=== PATIENT | male | born 1950 | race Caucasian/White ===

== ENCOUNTER 2017-09-10 14:20 | Observation (INO) | payer MEDICARE ==
[~2017-09-10] VITALS: Ht 180.3 cm; Wt 100.0 kg
[~2017-09-10 14:20] MED LIST: ASPI81TA30 PO; CHOL10002 PO; COLC0.6T69 PO; DICY10CA88 PO; DIPH1TAB PO; HYDR-565 PO; INSU100I29 SQ; INSU100V36 SQ; ISOS30TA6 PO; LEVO50TA8 PO; LORA1TAB PO; MAGN400C PO; MORP15TA60 PO; MV-M1TAB37 PO; NEBI5TAB10 PO; PANT40TA4 PO; RISP3TAB11 PO; SERT100T PO; TEST200V10 IM; TIZA2CAP7 PO; VITA-268 PO; VITC500T PO
[2017-09-10] MEDS ORDERED: morphine 4 MG/ML inj SYRINge IV ONE (14:40)
[2017-09-10] MEDS ORDERED: ondansetron/PF 4mg/2ml inj IV ONE (14:40)
[2017-09-10 15:55] LABS: BASOPHILS % (AUTO) 0.3 % (0-1); EOSINOPHILS # (AUTO) 0.1 X10'3 (0-0.9); HEMATOCRIT 41.1 % (42.0-52.0); HEMOGLOBIN 14.4 g/dl (14.0-17.9); LYMPHOCYTES # (AUTO) 1.9 X10'3 (1.1-4.8); LYMPHOCYTES % (AUTO) 19.1 % (21-51); MEAN CORPUSCULAR HEMOGLOBIN 27.9 PG (27.0-31.0); MEAN CORPUSCULAR HGB CONC 34.9 % (33.0-36.5); MEAN PLATELET VOLUME 7.8 FL (7.4-10.4); MONOCYTES # (AUTO) 0.4 X10'3 (0-0.9); MONOCYTES % (AUTO) 4.1 % (2-12); NEUTROPHILS # (AUTO) 7.7 X10'3 (1.8-7.7); NEUTROPHILS % (AUTO) 75.5 % (42-75); PLATELET COUNT 172 X10'3 (140-440); RED BLOOD COUNT 5.14 X10'6 (4.70-6.10); RED CELL DISTRIBUTION WIDTH 15.1 % (11.5-14.5); WHITE BLOOD COUNT 10.2 X10'3 (4.5-11.0)
[2017-09-10 16:18] LABS: ALANINE AMINOTRANSFERASE 37 U/L (12-78); ALBUMIN 3.9 G/DL (3.4-5.0); ALKALINE PHOSPHATASE 122 IU/L (46-116); ANION GAP 10 (8-16); ASPARTATE AMINO TRANSFERASE 24 U/L (10-37); BILIRUBIN,TOTAL 0.9 MG/DL (0.1-1.0); BLOOD UREA NITROGEN 27 MG/DL (7-18); BUN/CREATININE RATIO 18.8 (5.4-32.0); CALCIUM 9.8 MG/DL (8.5-10.1); CHLORIDE 97 MMOL/L (99-107); CREATININE 1.44 MG/DL (0.60-1.10); GLUCOSE 417 MG/DL (70-104); MAGNESIUM 1.5 MG/DL (1.5-2.4); POTASSIUM 4.7 MMOL/L (3.5-5.1); SODIUM 130 MMOL/L (135-145); TOTAL CARBON DIOXIDE 23.3 MMOL/L (24-32); eGFR 49 ML/MIN
[2017-09-10] MEDS ORDERED: glucagon, human recombinant 1mg kit SUBCUT PRN (17:55)
[2017-09-10] MEDS ORDERED: dextrose ORAL solution 15 GM/59 ML bottle PO PRN ×2 (17:55)
[2017-09-10] MEDS ORDERED: magnesium hydroxide 30ml (MOM) UD suspension PO PRN (17:55)
[2017-09-10] MEDS ORDERED: morphine 4 MG/ML inj SYRINge IV PRN ×2 (17:55)
[2017-09-10] MEDS ORDERED: LORazepam 1 MG tablet PO PRN (17:55)
[2017-09-10] MEDS: K and/or MAG REPLACEMENT MC SCH (17:55)
[2017-09-10] MEDS ORDERED: magnesium 2GM in 50ml NS 50 ML IV PRN (17:55)
[2017-09-10] MEDS ORDERED: ondansetron/PF 4mg/2ml inj IV PRN (17:55)
[2017-09-10] MEDS ORDERED: mag hydrox/Alum hydrox/simeth 30ml oral suspension PO PRN (17:55)
[2017-09-10] MEDS ORDERED: magnesium 4gm in 100ml NS 100 ML IV PRN (17:55)
[2017-09-10] MEDS ORDERED: dextrose 50%-water 50ml dispensing syringe IV PRN ×2 (17:55)
[2017-09-10] MEDS ORDERED: magnesium Cl slow-release 64mg tablet PO PRN (17:55)
[2017-09-10] MEDS ORDERED: potassium Cl 20 mEq SR tablet PO PRN ×2 (17:55)
[2017-09-10] MEDS ORDERED: MESSAGE TO PHARMACY PO ONE (17:55)
[2017-09-10] MEDS ORDERED: acetaminophen 325mg tablet PO PRN ×2 (17:55)
[2017-09-10] MEDS ORDERED: potassium Cl 40MEQ/NS 500ml 500 ML IV PRN ×2 (17:55)
[2017-09-10] MEDS ORDERED: HYDROcodone/acetaminophen 10/325mg tab PO PRN (17:55)
[2017-09-10 18:31] LABS: HEMOGLOBIN A1C 10.7 % (4.5-6.2)
[2017-09-10] MEDS ORDERED: TYPE IN GENERIC & BRAND NAME OF PATIENT MED STRENGTH & FORM PO PRN (19:10)
[2017-09-10] MEDS ORDERED: aspirin 81mg tab.chew PO SCH (21:00)
[2017-09-10] MEDS ORDERED: risperiDONE 2mg tablet PO SCH (21:00)
[2017-09-10] MEDS ORDERED: insulin glargine (Lantus) pen - multi-dose SQ SCH (21:00)
[2017-09-10] MEDS ORDERED: temazepam 15mg capsule PO PRN (21:00)
[2017-09-10] MEDS: morphine ER 15mg tablet PO SCH (22:09)
[2017-09-10] MEDS: isosorbide mononitrate 30mg tab.SR.24H PO SCH (22:09)
[2017-09-10] MEDS: magnesium oxide 400mg tablet PO SCH (22:21)
[2017-09-10] MEDS: normal saline 1000ml 1,000 ML IV SCH (22:21)
[2017-09-10] MEDS ORDERED: insulin Lispro (HumaLOG) vial - multi-dose SQ ONE (23:11)
[2017-09-10] MEDS: insulin Lispro (HumaLOG) vial - multi-dose SQ SCH (23:44)
[2017-09-11 03:27] LABS: HEMATOCRIT 39.9 % (42.0-52.0); HEMOGLOBIN 13.9 g/dl (14.0-17.9); MEAN CORPUSCULAR HEMOGLOBIN 28.1 PG (27.0-31.0); MEAN CORPUSCULAR HGB CONC 34.8 % (33.0-36.5); MEAN CORPUSCULAR VOLUME 80.6 FL (78-98); MEAN PLATELET VOLUME 7.8 FL (7.4-10.4); PLATELET COUNT 168 X10'3 (140-440); RED BLOOD COUNT 4.95 X10'6 (4.70-6.10); RED CELL DISTRIBUTION WIDTH 15.7 % (11.5-14.5)
[2017-09-11 03:38] LABS: ALBUMIN 3.7 G/DL (3.4-5.0); ANION GAP 11 (8-16); BLOOD UREA NITROGEN 28 MG/DL (7-18); CALCIUM 9.5 MG/DL (8.5-10.1); CHLORIDE 101 MMOL/L (99-107); CREATININE 1.27 MG/DL (0.60-1.10); GLUCOSE 360 MG/DL (70-104); MAGNESIUM 1.6 MG/DL (1.5-2.4); POTASSIUM 4.1 MMOL/L (3.5-5.1); SODIUM 135 MMOL/L (135-145); TOTAL CARBON DIOXIDE 23.5 MMOL/L (24-32); eGFR 56 ML/MIN
[2017-09-11 05:54] VITALS: BP 123/75
[2017-09-11] MEDS ORDERED: pantoprazole 40mg Tablet.DR PO SCH (07:30)
[2017-09-11] MEDS: magnesium oxide 400mg tablet PO SCH (07:44)
[2017-09-11] MEDS: morphine ER 15mg tablet PO SCH (07:45)
[2017-09-11] MEDS ORDERED: levoTHYROXINE 25mcg tablet PO SCH (08:00)
[2017-09-11] MEDS ORDERED: sertraline 50mg tablet PO SCH (08:00)
[2017-09-11] MEDS ORDERED: enoxaparin 40mg/0.4ml syringe SUBCUT SCH (08:00)
[2017-09-11] MEDS: K and/or MAG REPLACEMENT MC SCH (08:00)
[2017-09-11] MEDS: isosorbide mononitrate 30mg tab.SR.24H PO SCH (08:03)
[2017-09-11] MEDS: normal saline 1000ml 1,000 ML IV SCH (08:10)
[2017-09-11] MEDS: insulin Lispro (HumaLOG) vial - multi-dose SQ SCH (08:34)
== END 2017-09-11 12:37 | disposition home or self-care (01) ==
LOC: ER 14:20 → ED HOLD 17:55
PROVIDERS: ADMIT Family Medicine; ATTEND Family Medicine
DX: I25.119 Atherosclerotic heart disease of native coronary artery with unspecified angina pectoris (principal); I12.9 Hypertensive chronic kidney disease with stage 1 through stage 4 chronic kidney disease, or unspecified chronic kidney disease; E11.22 Type 2 diabetes mellitus with diabetic chronic kidney disease; E78.5 Hyperlipidemia, unspecified; E03.9 Hypothyroidism, unspecified; E87.1 Hypo-osmolality and hyponatremia; G40.909 Epilepsy, unspecified, not intractable, without status epilepticus; G89.4 Chronic pain syndrome; I25.2 Old myocardial infarction; K29.70 Gastritis, unspecified, without bleeding; M94.0 Chondrocostal junction syndrome [Tietze]; N18.9 Chronic kidney disease, unspecified; Z95.1 Presence of aortocoronary bypass graft; Z95.2 Presence of prosthetic heart valve
CPT/HCPCS: 36415; 71045; 80048; 80053; 82948; 83036; 83735; 83880; 84484; 85025; 85027; 93005; 96361; 96372; 96374; 96375; 96376; 99285; G0378; J1650; J1815; J2270; J2405

== ENCOUNTER 2018-04-18 09:34 | Emergency (ER) | payer MEDICARE ==
[~2018-04-18] VITALS: Ht 180.3 cm; Wt 110.0 kg
[~2018-04-18 09:34] MED LIST changes: +CIPR-230 PO; -HYDR-565 PO; +NITR0.4T48 SL; +TRAM50TA2 PO
[2018-04-18] MEDS ORDERED: normal saline 1000ML IV soln IV ONE (10:10)
[2018-04-18 10:25] LABS: INR 1.1 INR; PARTIAL THROMBOPLASTIN TIME 29 SECONDS (22-32)
[2018-04-18 10:30] LABS: ALANINE AMINOTRANSFERASE 25 U/L (12-78); ALBUMIN 3.4 G/DL (3.4-5.0); ALBUMIN/GLOBULIN RATIO 0.8 (1.1-1.5); ALKALINE PHOSPHATASE 116 IU/L (46-116); ANION GAP 11 (8-16); ASPARTATE AMINO TRANSFERASE 18 U/L (10-37); BILIRUBIN,TOTAL 1.1 MG/DL (0.1-1.0); BLOOD UREA NITROGEN 19 MG/DL (7-18); BUN/CREATININE RATIO 13.4 (5.4-32.0); CALCIUM 9.3 MG/DL (8.5-10.1); CHLORIDE 102 MMOL/L (99-107); CREATININE 1.42 MG/DL (0.60-1.10); GLUCOSE 187 MG/DL (70-104); MAGNESIUM 1.3 MG/DL (1.5-2.4); POTASSIUM 4.5 MMOL/L (3.5-5.1); SODIUM 137 MMOL/L (135-145); TOTAL CARBON DIOXIDE 24.3 MMOL/L (24-32); TOTAL PROTEIN 7.7 G/DL (6.4-8.2); eGFR 50 ML/MIN
[2018-04-18 10:32] LABS: BASOPHILS % (AUTO) 0.3 % (0-1); EOSINOPHILS % (AUTO) 0.4 % (0-6); HEMATOCRIT 32.7 % (42.0-52.0); HEMOGLOBIN 11.5 g/dl (14.0-17.9); LYMPHOCYTES # (AUTO) 0.9 X10'3 (1.1-4.8); LYMPHOCYTES % (AUTO) 8.9 % (21-51); MEAN CORPUSCULAR HEMOGLOBIN 28.5 PG (27.0-31.0); MEAN CORPUSCULAR HGB CONC 35.2 % (33.0-36.5); MEAN PLATELET VOLUME 8.3 FL (7.4-10.4); MONOCYTES # (AUTO) 0.5 X10'3 (0-0.9); MONOCYTES % (AUTO) 5.6 % (2-12); NEUTROPHILS # (AUTO) 8.2 X10'3 (1.8-7.7); NEUTROPHILS % (AUTO) 84.8 % (42-75); PLATELET COUNT 139 X10'3 (140-440); RED BLOOD COUNT 4.04 X10'6 (4.70-6.10); RED CELL DISTRIBUTION WIDTH 14.5 % (11.5-14.5); WHITE BLOOD COUNT 9.6 X10'3 (4.5-11.0)
[2018-04-18] MEDS ORDERED: PREG100C PO (11:23)
[2018-04-18] MEDS ORDERED: LOSA25TA96 PO (11:23)
[2018-04-18] MEDS ORDERED: INDO50CA14 PO (11:23)
[2018-04-18] MEDS ORDERED: ATOR20TA PO (11:23)
[2018-04-18] MEDS ORDERED: DULA1.5P (11:23)
[2018-04-18] MEDS ORDERED: NAPR220T67 PO (11:23)
[2018-04-18 11:30] VITALS: BP 122/68
[2018-04-18] MEDS ORDERED: PRED20TA PO (12:56)
[2018-04-18] MEDS ORDERED: TAM75C PO (12:56)
[2018-04-18] MEDS ORDERED: GUAI120015 PO (12:56)
== END 2018-04-18 13:52 | disposition home or self-care (01) ==
LOC: ER 09:35
DX: B34.9 Viral infection, unspecified (principal); I25.119 Atherosclerotic heart disease of native coronary artery with unspecified angina pectoris; I10 Essential (primary) hypertension; E11.9 Type 2 diabetes mellitus without complications; I25.2 Old myocardial infarction; G89.29 Other chronic pain; F41.9 Anxiety disorder, unspecified; M10.9 Gout, unspecified; Z88.5 Allergy status to narcotic agent; Z88.8 Allergy status to other drugs, medicaments and biological substances; Z79.82 Long term (current) use of aspirin; Z79.84 Long term (current) use of oral hypoglycemic drugs; Z79.899 Other long term (current) drug therapy; Z90.49 Acquired absence of other specified parts of digestive tract; Z95.1 Presence of aortocoronary bypass graft
CPT/HCPCS: 36415; 71045; 80053; 83605; 83735; 84145; 85025; 85610; 85730; 87040; 87186; 87502; 87503; 93005; 96360; 96361; 99285

== ENCOUNTER 2018-08-19 11:46 | Emergency (ER) | payer MEDICARE, OTHER ==
[~2018-08-19] VITALS: Ht 180.3 cm; Wt 95.5 kg
[~2018-08-19 11:46] MED LIST changes: +ATOR20TA PO; -CHOL10002 PO; -CIPR-230 PO; -COLC0.6T69 PO; +DULA1.5P; +GUAI120015 PO; +INDO50CA14 PO; +LOSA25TA96 PO; -MAGN400C PO; -MORP15TA60 PO; -MV-M1TAB37 PO; +NAPR220T67 PO; +PREG100C PO; -VITA-268 PO; -VITC500T PO
[2018-08-19 12:29] LABS: BASOPHILS % (AUTO) 0.3 % (0-1); EOSINOPHILS # (AUTO) 0.2 X10'3 (0-0.9); EOSINOPHILS % (AUTO) 2.5 % (0-6); HEMATOCRIT 32.6 % (42.0-52.0); HEMOGLOBIN 11.2 g/dl (14.0-17.9); LYMPHOCYTES # (AUTO) 1.4 X10'3 (1.1-4.8); LYMPHOCYTES % (AUTO) 19.9 % (21-51); MEAN CORPUSCULAR HEMOGLOBIN 28.1 PG (27.0-31.0); MEAN CORPUSCULAR HGB CONC 34.3 g/dL (33.0-36.5); MEAN CORPUSCULAR VOLUME 81.8 FL (78-98); MEAN PLATELET VOLUME 7.6 FL (7.4-10.4); MONOCYTES # (AUTO) 0.4 X10'3 (0-0.9); MONOCYTES % (AUTO) 6.4 % (2-12); NEUTROPHILS % (AUTO) 70.9 % (42-75); PLATELET COUNT 170 X10'3 (140-440); RED BLOOD COUNT 3.98 X10'6 (4.70-6.10); RED CELL DISTRIBUTION WIDTH 15.2 % (11.5-14.5)
[2018-08-19 12:49] LABS: PARTIAL THROMBOPLASTIN TIME 27 SECONDS (22-32); PROTHROMBIN TIME 10.4 SECONDS (9.0-12.0)
[2018-08-19 12:52] LABS: ALANINE AMINOTRANSFERASE 24 U/L (12-78); ALBUMIN 3.5 G/DL (3.4-5.0); ALBUMIN/GLOBULIN RATIO 0.9 (1.1-1.5); ALKALINE PHOSPHATASE 115 IU/L (46-116); ANION GAP 11 (8-16); ASPARTATE AMINO TRANSFERASE 12 U/L (10-37); BILIRUBIN,TOTAL 0.6 MG/DL (0.1-1.0); BLOOD UREA NITROGEN 21 MG/DL (7-18); CALCIUM 9.1 MG/DL (8.5-10.1); CHLORIDE 102 MMOL/L (99-107); GLUCOSE 360 MG/DL (70-104); POTASSIUM 4.7 MMOL/L (3.5-5.1); SODIUM 135 MMOL/L (135-145); TOTAL CARBON DIOXIDE 22.5 MMOL/L (24-32); TOTAL PROTEIN 7.3 G/DL (6.4-8.2); eGFR 50 ML/MIN
--- NOTE | 2018-08-19 14:50 | NUR ---
CHEST PAIN SINCE 1030 THIS AM. TOOK 3 NITROS AND GOT RELIEF. PAIN IS RETURNING NOW AND RATED 8/10 STABBING AND INTERMITTENT. PAIN IN LEFT SIDE OF NECK AND DOWN LEFT ARM.
[2018-08-19] MEDS ORDERED: mag hydrox/Alum hydrox/simeth 30ml oral suspension PO ONE (15:05)
[2018-08-19] MEDS ORDERED: nitroGLYCERIN 0.4mg SUBLingual tab SL PRN (15:05)
[2018-08-19] MEDS ORDERED: LIDOcaine Viscous 15ml cup PO ONE (15:05)
[2018-08-19] MEDS ORDERED: aspirin 81mg tab.chew PO ONE (15:05)
[2018-08-19] MEDS ORDERED: nitroGLYCERIN 0.4mg/hour patch TD ONE (15:05)
[2018-08-19] MEDS ORDERED: pantoprazole 40mg Tablet.DR PO STA (16:05)
[2018-08-19] MEDS ORDERED: OMEP40CA37 PO (16:07)
[2018-08-19 16:23] VITALS: BP 159/90
== END 2018-08-19 17:16 | disposition home or self-care (01) ==
LOC: ER 11:48
DX: R07.89 Other chest pain (principal); R06.02 Shortness of breath; R05 Cough; R11.0 Nausea; R61 Generalized hyperhidrosis; I25.10 Atherosclerotic heart disease of native coronary artery without angina pectoris; I10 Essential (primary) hypertension; I25.2 Old myocardial infarction; E11.9 Type 2 diabetes mellitus without complications; G89.29 Other chronic pain; Z90.49 Acquired absence of other specified parts of digestive tract; Z95.0 Presence of cardiac pacemaker; Z98.890 Other specified postprocedural states; Z88.8 Allergy status to other drugs, medicaments and biological substances; Z79.82 Long term (current) use of aspirin; Z79.4 Long term (current) use of insulin; Z79.899 Other long term (current) drug therapy
CPT/HCPCS: 36415; 71046; 80053; 84484; 85025; 85610; 85730; 93005; 99284

== ENCOUNTER 2019-05-18 11:53 | Emergency (ER) | payer MEDICARE, OTHER ==
[~2019-05-18] VITALS: Ht 180.3 cm; Wt 84.4 kg
[~2019-05-18 11:53] MED LIST changes: -ATOR20TA PO; +BUSP5TAB3 PO; -DIPH1TAB PO; -DULA1.5P; -GUAI120015 PO; +ICOS1CAP PO; -INDO50CA14 PO; -INSU100I29 SQ; +INSU300I; +LACT1CAP26 PO; -LORA1TAB PO; -LOSA25TA96 PO; -NAPR220T67 PO; +NOR5T PO; -PANT40TA4 PO; -TEST200V10 IM; -TIZA2CAP7 PO
[2019-05-18 12:26] LABS: BASOPHILS # (AUTO) 0.1 X10'3 (0-0.2); BASOPHILS % (AUTO) 0.7 % (0-1); EOSINOPHILS % (AUTO) 0.4 % (0-6); HEMATOCRIT 39.1 % (42.0-52.0); HEMOGLOBIN 13.7 g/dl (14.0-17.9); LYMPHOCYTES # (AUTO) 2.1 X10'3 (1.1-4.8); MEAN CORPUSCULAR HEMOGLOBIN 29.5 PG (27.0-31.0); MEAN CORPUSCULAR HGB CONC 35.1 g/dL (33.0-36.5); MEAN CORPUSCULAR VOLUME 84.1 FL (78-98); MEAN PLATELET VOLUME 7.6 FL (7.4-10.4); MONOCYTES # (AUTO) 0.7 X10'3 (0-0.9); MONOCYTES % (AUTO) 6.8 % (2-12); NEUTROPHILS # (AUTO) 6.7 X10'3 (1.8-7.7); NEUTROPHILS % (AUTO) 70.1 % (42-75); PLATELET COUNT 241 X10'3 (140-440); RED BLOOD COUNT 4.65 X10'6 (4.70-6.10); RED CELL DISTRIBUTION WIDTH 15.7 % (11.5-14.5); WHITE BLOOD COUNT 9.6 X10'3 (4.5-11.0)
[2019-05-18 12:43] LABS: ALANINE AMINOTRANSFERASE 20 U/L (12-78); ALBUMIN 4.7 G/DL (3.4-5.0); ALBUMIN/GLOBULIN RATIO 1.1 (1.1-1.5); ALKALINE PHOSPHATASE 75 IU/L (46-116); ANION GAP 15 (8-16); ASPARTATE AMINO TRANSFERASE 23 U/L (10-37); BILIRUBIN,TOTAL 1.8 MG/DL (0.1-1.0); BLOOD UREA NITROGEN 37 MG/DL (7-18); BUN/CREATININE RATIO 21.1 (5.4-32.0); CALCIUM 9.9 MG/DL (8.5-10.1); CHLORIDE 103 MMOL/L (99-107); CREATININE 1.75 MG/DL (0.60-1.10); GLUCOSE 172 MG/DL (70-104); POTASSIUM 4.3 MMOL/L (3.5-5.1); SODIUM 134 MMOL/L (135-145); TOTAL CARBON DIOXIDE 15.6 MMOL/L (24-32); TOTAL PROTEIN 9.1 G/DL (6.4-8.2); eGFR 39 ML/MIN
[2019-05-18] MEDS ORDERED: LORazepam 0.5 MG tablet PO PRN (12:50)
[2019-05-18] MEDS ORDERED: mag hydrox/Alum hydrox/simeth 30ml oral suspension PO ONE (14:50)
[2019-05-18] MEDS ORDERED: LORA-268 PO (15:58)
[2019-05-18 16:06] VITALS: BP 158/81
== END 2019-05-18 16:09 | disposition home or self-care (01) ==
LOC: ER 11:53
DX: R07.89 Other chest pain (principal); R06.02 Shortness of breath; F41.9 Anxiety disorder, unspecified; I25.10 Atherosclerotic heart disease of native coronary artery without angina pectoris; I10 Essential (primary) hypertension; I25.2 Old myocardial infarction; E11.9 Type 2 diabetes mellitus without complications; G89.29 Other chronic pain; Z90.49 Acquired absence of other specified parts of digestive tract; Z95.1 Presence of aortocoronary bypass graft; Z56.0 Unemployment, unspecified; Z88.8 Allergy status to other drugs, medicaments and biological substances; Z79.82 Long term (current) use of aspirin; Z79.4 Long term (current) use of insulin; Z79.899 Other long term (current) drug therapy
CPT/HCPCS: 36415; 71045; 80053; 84484; 85025; 93005; 99284

== ENCOUNTER 2019-07-11 09:41 | Inpatient (IN) | payer MEDICARE, OTHER ==
[~2019-07-11] VITALS: Ht 180.3 cm; Wt 61.6 kg
[~2019-07-11 09:41] MED LIST changes: +LORA-268 PO
[2019-07-11 10:28] LABS: BASOPHILS # (AUTO) 0.1 X10'3 (0-0.2); BASOPHILS % (AUTO) 0.8 % (0-1); EOSINOPHILS # (AUTO) 0.2 X10'3 (0-0.9); EOSINOPHILS % (AUTO) 1.4 % (0-6); HEMATOCRIT 36.6 % (42.0-52.0); HEMOGLOBIN 12.5 g/dl (14.0-17.9); LYMPHOCYTES % (AUTO) 24.7 % (21-51); MEAN CORPUSCULAR HEMOGLOBIN 28.2 PG (27.0-31.0); MEAN CORPUSCULAR HGB CONC 34.2 g/dL (33.0-36.5); MEAN CORPUSCULAR VOLUME 82.4 FL (78-98); MEAN PLATELET VOLUME 8.1 FL (7.4-10.4); MONOCYTES # (AUTO) 0.9 X10'3 (0-0.9); MONOCYTES % (AUTO) 7.3 % (2-12); NEUTROPHILS # (AUTO) 7.9 X10'3 (1.8-7.7); NEUTROPHILS % (AUTO) 65.8 % (42-75); PLATELET COUNT 253 X10'3 (140-440); RED BLOOD COUNT 4.44 X10'6 (4.70-6.10); RED CELL DISTRIBUTION WIDTH 14.4 % (11.5-14.5)
[2019-07-11 10:50] LABS: ALANINE AMINOTRANSFERASE 27 U/L (12-78); ALBUMIN 3.7 G/DL (3.4-5.0); ALBUMIN/GLOBULIN RATIO 0.9 (1.1-1.5); ALKALINE PHOSPHATASE 117 IU/L (46-116); ANION GAP 13 (8-16); ASPARTATE AMINO TRANSFERASE 19 U/L (10-37); BILIRUBIN,TOTAL 1.3 MG/DL (0.1-1.0); BLOOD UREA NITROGEN 29 MG/DL (7-18); CALCIUM 9.8 MG/DL (8.5-10.1); CHLORIDE 106 MMOL/L (99-107); GLUCOSE 112 MG/DL (70-104); POTASSIUM 4.3 MMOL/L (3.5-5.1); SODIUM 142 MMOL/L (135-145); TOTAL CARBON DIOXIDE 23.4 MMOL/L (24-32)
[2019-07-11 11:00] LABS: BUN/CREATININE RATIO 19.6 (5.4-32.0); CREATININE 1.48 MG/DL (0.60-1.10); MAGNESIUM 1.4 MG/DL (1.5-2.4); eGFR 47 ML/MIN
[2019-07-11] MEDS ORDERED: furosemide 10 MG/1 ML 10ml inj IV ONE (11:10)
[2019-07-11] MEDS ORDERED: nitroGLYCERIN 1gm ointment UD TP ONE (11:15)
[2019-07-11] MEDS ORDERED: potassium CL 10mEq/100ml bag 100 ML IV PRN ×2 (12:15)
[2019-07-11] MEDS ORDERED: acetaminophen 325mg tablet PO PRN ×2 (12:15)
[2019-07-11] MEDS ORDERED: magnesium Cl slow-release 64mg tablet PO PRN (12:15)
[2019-07-11] MEDS ORDERED: magnesium 4gm in 100ml NS 100 ML IV PRN (12:15)
[2019-07-11] MEDS ORDERED: potassium Cl 20 mEq SR tablet PO PRN ×2 (12:15)
[2019-07-11] MEDS ORDERED: HYDROcodone/acetaminophen 5mg/325mg tablet PO PRN (12:15)
[2019-07-11] MEDS ORDERED: ondansetron/PF 4mg/2ml inj IV PRN (12:15)
[2019-07-11] MEDS ORDERED: morphine 2 MG/ML inj. syringe IV PRN ×2 (12:15)
[2019-07-11] MEDS ORDERED: magnesium 2GM in 50ml NS 50 ML IV PRN (12:15)
[2019-07-11] MEDS ORDERED: magnesium hydroxide 30ml (MOM) UD suspension PO PRN (12:15)
[2019-07-11] MEDS ORDERED: mag hydrox/Alum hydrox/simeth 30ml oral suspension PO PRN (12:15)
[2019-07-11] MEDS ORDERED: LYR75C PO (12:49)
[2019-07-11] MEDS ORDERED: ISOS30TA6 PO (12:56)
[2019-07-11] MEDS ORDERED: LOSA100T57 PO (12:56)
[2019-07-11] MEDS ORDERED: PANT40TA4 PO (12:57)
[2019-07-11] MEDS ORDERED: AMLO10TA PO (12:57)
[2019-07-11] MEDS ORDERED: INSU100C10 SQ (12:58)
--- NOTE | 2019-07-11 15:20 | NUR ---
Received report from ED. Pt in route. 1535 Pt arrived to unit, ambulated to bed independently. No signs of distress. Call light provided to patient. VS assessed, stable. Pt denies CP at this time. transformation lead applied. Report given to primary RN Radha @ [id number].
--- NOTE | 2019-07-11 15:38 | NUR ---
Patient admitted to room 3027Q. Resource nurse applied tele, took vital signs and are stable. Patient oriented to room, will continue to monitor closely
[2019-07-11 15:40] VITALS: BP 154/91
--- NOTE | 2019-07-11 16:08 | NUR ---
Patient had complaints of chest pain, more so on left side, and stated that it radiated slightly into upper arm. Paged PAGER ID: [phone] MESSAGE: Radha gay [phone]. RE Miguel Gonzalez [id number]. STAT EKG being done for chest pain. Can I bring EKG to you to read? Thank you
--- NOTE | 2019-07-11 16:15 | NUR ---
Dr Richardson notified of EKG done for chest pain complaint. Gave patient SL Nitro and brought EKG, EKG read by Dr Tinajero as Non Stemi. Vital signs stable. Will monitor closely
[2019-07-11] MEDS: nitroGLYCERIN 0.4mg SUBLingual tab SL PRN (16:20)
--- NOTE | 2019-07-11 17:18 | NUR ---
Paged to continue trop series and pt ativan request PAGER ID: [phone] MESSAGE: Radha GRAVES. RE Miguel Pierce [id number]. There is only one troponin ordered and completed. Would you like order for continued trop series? Also patient is requesting order for Ativan if possible. Thank you
[2019-07-11] MEDS ORDERED: LORazepam 1 MG tablet PO PRN (17:20)
[2019-07-11] MEDS ORDERED: dextrose 50%-water 50ml dispensing syringe IV PRN ×2 (17:20)
[2019-07-11] MEDS ORDERED: insulin Lispro (HumaLOG) vial - multi-dose SQ SCH (17:20)
[2019-07-11] MEDS ORDERED: MESSAGE TO PHARMACY PO ONE (17:20)
[2019-07-11] MEDS ORDERED: glucagon, human recombinant 1mg kit SUBCUT PRN (17:20)
[2019-07-11] MEDS ORDERED: dextrose ORAL solution 15 GM/59 ML bottle PO PRN ×2 (17:20)
--- NOTE | 2019-07-11 18:22 | NUR ---
Problems reprioritized. Patient report given, questions answered & plan of care reviewed with Anel PIERRE.
[2019-07-11 19:00] VITALS: BP 115/78
[2019-07-11] MEDS: K and/or MAG REPLACEMENT MC SCH (20:00)
[2019-07-11] MEDS: insulin glargine (Lantus) pen - multi-dose SQ SCH (21:00)
[2019-07-11] MEDS ORDERED: dicyclomine 10 MG capsule PO PRN (21:15)
[2019-07-11] MEDS ORDERED: traMADol 50MG tablet PO PRN (21:15)
[2019-07-11] MEDS ORDERED: aminophylline 250mg/10ml inj. IV PRN (21:20)
[2019-07-11] MEDS ORDERED: enoxaparin 100mg/ml syringe SUBCUT SCH (21:20)
[2019-07-11] MEDS ORDERED: metoprolol tartrate 1mg/ml inj IV PRN (21:20)
[2019-07-11] MEDS ORDERED: regadenoson 0.4mg/5ml syringe IV PRN (21:20)
[2019-07-11] MEDS ORDERED: nitroGLYCERIN 0.4mg SUBLingual tab SL PRN (21:20)
[2019-07-11 23:00] VITALS: BP 98/72
[2019-07-12] VITALS (12 sets, daily range): BP systolic 80–126; BP diastolic 47–81
[2019-07-12 05:28] LABS: BASOPHILS # (AUTO) 0.1 X10'3 (0-0.2); BASOPHILS % (AUTO) 0.7 % (0-1); EOSINOPHILS # (AUTO) 0.1 X10'3 (0-0.9); EOSINOPHILS % (AUTO) 1.5 % (0-6); HEMATOCRIT 34.6 % (42.0-52.0); HEMOGLOBIN 12.2 g/dl (14.0-17.9); LYMPHOCYTES # (AUTO) 2.2 X10'3 (1.1-4.8); LYMPHOCYTES % (AUTO) 23.4 % (21-51); MEAN CORPUSCULAR HEMOGLOBIN 29.1 PG (27.0-31.0); MEAN CORPUSCULAR HGB CONC 35.2 g/dL (33.0-36.5); MEAN CORPUSCULAR VOLUME 82.7 FL (78-98); MEAN PLATELET VOLUME 8.7 FL (7.4-10.4); MONOCYTES # (AUTO) 0.6 X10'3 (0-0.9); MONOCYTES % (AUTO) 6.8 % (2-12); NEUTROPHILS # (AUTO) 6.3 X10'3 (1.8-7.7); NEUTROPHILS % (AUTO) 67.6 % (42-75); PLATELET COUNT 196 X10'3 (140-440); RED BLOOD COUNT 4.19 X10'6 (4.70-6.10); RED CELL DISTRIBUTION WIDTH 14.3 % (11.5-14.5); WHITE BLOOD COUNT 9.3 X10'3 (4.5-11.0)
[2019-07-12 05:45] LABS: ALBUMIN 3.5 G/DL (3.4-5.0); ANION GAP 8 (8-16); BLOOD UREA NITROGEN 33 MG/DL (7-18); BUN/CREATININE RATIO 22.1 (5.4-32.0); CALCIUM 9.7 MG/DL (8.5-10.1); CHLORIDE 105 MMOL/L (99-107); CREATININE 1.49 MG/DL (0.60-1.10); GLUCOSE 116 MG/DL (70-104); MAGNESIUM 1.5 MG/DL (1.5-2.4); POTASSIUM 3.5 MMOL/L (3.5-5.1); SODIUM 141 MMOL/L (135-145); TOTAL CARBON DIOXIDE 27.9 MMOL/L (24-32); TROPONIN I < 0.04 NG/ML (0.0-0.05); eGFR 47 ML/MIN
--- NOTE | 2019-07-12 06:55 | NUR ---
Patient in room PCU 3028. I have received report from IGNACIO PALMER and had the opportunity to ask questions and assume patient care.
[2019-07-12] MEDS: levoTHYROXINE 25mcg tablet PO SCH (07:54)
[2019-07-12] MEDS: pantoprazole 40mg Tablet.DR PO SCH (07:54)
[2019-07-12] MEDS: lactobacillus rhamnosus 10,000 MMU CELLS/CAPSULE PO SCH ×2 (07:54→20:46)
[2019-07-12] MEDS: isosorbide mononitrate 30mg tab.SR.24H PO SCH (07:55)
[2019-07-12] MEDS: pregabalin 75mg capsule PO SCH ×2 (07:55→20:46)
[2019-07-12] MEDS: losartan 50mg tablet PO SCH (07:55)
[2019-07-12] MEDS: busPIRone 5mg tablet PO SCH (07:55)
[2019-07-12] MEDS: sertraline 50mg tablet PO SCH (07:55)
[2019-07-12] MEDS: amLODIPine 5mg tablet PO SCH (07:56)
[2019-07-12] MEDS: LORazepam 0.5 MG tablet PO SCH ×2 (07:56→20:46)
[2019-07-12] MEDS: K and/or MAG REPLACEMENT MC SCH ×2 (08:00→20:00)
[2019-07-12] MEDS ORDERED: enoxaparin 60mg/0.6ml syringe SUBCUT SCH (08:00)
[2019-07-12] MEDS ORDERED: furosemide 20 MG/2 ML vial IV SCH (08:00)
[2019-07-12] MEDS ORDERED: enoxaparin 40mg/0.4ml syringe SQ SCH (08:00)
--- NOTE | 2019-07-12 08:16 | NUR ---
PER DR. NYDIA KRISHNA AM [facility]
--- NOTE | 2019-07-12 09:34 | NUR ---
PAGER ID: [phone] MESSAGE: [id number] TAMMY IS HAVING 7/10 LEFT SIDED CHEST PAIN. WE ARE GETTING EKG. JAKE GRAVES
--- NOTE | 2019-07-12 09:39 | NUR ---
PAGED DR. STAFFORD PAGER ID: [phone] MESSAGE: TIA [facility] [id number] CAN YOU CALL ME SHIMA PLEASE MICHELLE MUNOZ CHEST
[2019-07-12] MEDS: nitroGLYCERIN 0.4mg SUBLingual tab SL PRN (09:48)
--- NOTE | 2019-07-12 09:51 | NUR ---
dr. aquino in to see pt per md give ntg. ntg given bp 93/56 99%ra hr 95
[2019-07-12] MEDS ORDERED: aspirin 325mg tablet PO ONE (10:00)
--- NOTE | 2019-07-12 10:03 | NUR ---
pt states chest pain is getting better 3/10 at this point. current bp 93/57
[2019-07-12] MEDS ORDERED: heparin 10,000 units/1 ML INJ IV ONE (10:10)
--- NOTE | 2019-07-12 10:40 | NUR ---
PT STATES HE IS FEELING MUCH BETTER, CHEST PAIN HAS RESOLVED
[2019-07-12] MEDS: heparin 25,000 UNIT/250ml bag 250 ML IV SCH ×2 (10:51→18:01)
[2019-07-12 10:59] LABS: BASOPHILS # (AUTO) 0.1 X10'3 (0-0.2); BASOPHILS % (AUTO) 0.6 % (0-1); EOSINOPHILS # (AUTO) 0.2 X10'3 (0-0.9); EOSINOPHILS % (AUTO) 1.6 % (0-6); HEMATOCRIT 36.1 % (42.0-52.0); HEMOGLOBIN 12.6 g/dl (14.0-17.9); LYMPHOCYTES # (AUTO) 2.5 X10'3 (1.1-4.8); LYMPHOCYTES % (AUTO) 24.6 % (21-51); MEAN CORPUSCULAR HEMOGLOBIN 28.8 PG (27.0-31.0); MEAN CORPUSCULAR VOLUME 82.1 FL (78-98); MEAN PLATELET VOLUME 8.4 FL (7.4-10.4); MONOCYTES # (AUTO) 0.7 X10'3 (0-0.9); MONOCYTES % (AUTO) 6.4 % (2-12); NEUTROPHILS # (AUTO) 6.9 X10'3 (1.8-7.7); NEUTROPHILS % (AUTO) 66.8 % (42-75); PLATELET COUNT 237 X10'3 (140-440); RED BLOOD COUNT 4.39 X10'6 (4.70-6.10); RED CELL DISTRIBUTION WIDTH 14.4 % (11.5-14.5); WHITE BLOOD COUNT 10.3 X10'3 (4.5-11.0)
[2019-07-12 11:07] LABS: PARTIAL THROMBOPLASTIN TIME 30 SECONDS (22-32)
--- NOTE | 2019-07-12 15:43 | NUR ---
PAGED DR STAFFORD promotional table spacer PAGER ID: [phone] MESSAGE: LARY U [id number] SINTIAU CALL PLEASE MICHELLE MUNOZ BP /47 80/46 PT ASYMPTOMATIC, STATES HE IS FEELING FINE Addendum: 07/12/19 at 1607 by Lary Osman RN PER DR STAFFORD GIVE 250ML BOLUS NS
[2019-07-12] MEDS ORDERED: normal saline 1000ml 1,000 ML IV ONE (16:00)
[2019-07-12] MEDS: heparin 10,000 units/1 ML INJ IV PRN (17:57)
--- NOTE | 2019-07-12 18:38 | NUR ---
Problems reprioritized. Patient report given, questions answered & plan of care reviewed with IGNACIO Araujo.
[2019-07-12] MEDS: aspirin 81mg tablet.DR PO SCH (20:46)
[2019-07-12] MEDS: risperiDONE 0.5mg tablet PO SCH (20:46)
[2019-07-12] MEDS: insulin glargine (Lantus) pen - multi-dose SQ SCH (20:51)
[2019-07-13 01:23] LABS: ALBUMIN 3.2 G/DL (3.4-5.0); ANION GAP 6 (8-16); BLOOD UREA NITROGEN 48 MG/DL (7-18); BUN/CREATININE RATIO 21.4 (5.4-32.0); CALCIUM 9.2 MG/DL (8.5-10.1); CHLORIDE 104 MMOL/L (99-107); CREATININE 2.24 MG/DL (0.60-1.10); GLUCOSE 179 MG/DL (70-104); MAGNESIUM 1.5 MG/DL (1.5-2.4); POTASSIUM 3.8 MMOL/L (3.5-5.1); SODIUM 137 MMOL/L (135-145); TOTAL CARBON DIOXIDE 26.7 MMOL/L (24-32); eGFR 29 ML/MIN
[2019-07-13 01:40] LABS: BASOPHILS # (AUTO) 0.1 X10'3 (0-0.2); BASOPHILS % (AUTO) 0.8 % (0-1); EOSINOPHILS # (AUTO) 0.1 X10'3 (0-0.9); EOSINOPHILS % (AUTO) 1.2 % (0-6); HEMATOCRIT 31.4 % (42.0-52.0); LYMPHOCYTES # (AUTO) 1.9 X10'3 (1.1-4.8); LYMPHOCYTES % (AUTO) 23.1 % (21-51); MEAN CORPUSCULAR HEMOGLOBIN 28.8 PG (27.0-31.0); MEAN CORPUSCULAR VOLUME 82.5 FL (78-98); MONOCYTES # (AUTO) 0.5 X10'3 (0-0.9); MONOCYTES % (AUTO) 5.8 % (2-12); NEUTROPHILS # (AUTO) 5.6 X10'3 (1.8-7.7); NEUTROPHILS % (AUTO) 69.1 % (42-75); PLATELET COUNT 174 X10'3 (140-440); RED CELL DISTRIBUTION WIDTH 14.2 % (11.5-14.5); WHITE BLOOD COUNT 8.1 X10'3 (4.5-11.0)
[2019-07-13] MEDS: heparin 10,000 units/1 ML INJ IV PRN ×2 (02:12→22:34)
[2019-07-13] MEDS: heparin 25,000 UNIT/250ml bag 250 ML IV SCH ×3 (02:16→22:35)
[2019-07-13 03:00] VITALS: BP 75/47
[2019-07-13 06:00] VITALS: BP 76/44
--- NOTE | 2019-07-13 06:22 | NUR ---
Problems reprioritized. Patient report given, questions answered & plan of care reviewed with Marilyn PIERRE.
--- NOTE | 2019-07-13 06:27 | NUR ---
Patient in room PCU 3028. I have received report from Lucina PIERRE and had the opportunity to ask questions and assume patient care.
[2019-07-13] MEDS: pantoprazole 40mg Tablet.DR PO SCH (07:23)
[2019-07-13] MEDS: pregabalin 75mg capsule PO SCH ×2 (07:24→20:50)
[2019-07-13] MEDS: lactobacillus rhamnosus 10,000 MMU CELLS/CAPSULE PO SCH ×2 (07:24→20:50)
[2019-07-13] MEDS: busPIRone 5mg tablet PO SCH (07:24)
[2019-07-13] MEDS: sertraline 50mg tablet PO SCH (07:24)
[2019-07-13] MEDS: LORazepam 0.5 MG tablet PO SCH ×2 (07:24→20:50)
[2019-07-13] MEDS: levoTHYROXINE 25mcg tablet PO SCH (07:24)
[2019-07-13] MEDS: K and/or MAG REPLACEMENT MC SCH ×2 (07:27→19:22)
[2019-07-13] MEDS: isosorbide mononitrate 30mg tab.SR.24H PO SCH (07:28)
[2019-07-13] MEDS: losartan 50mg tablet PO SCH (07:28)
[2019-07-13] MEDS: amLODIPine 5mg tablet PO SCH (07:28)
--- NOTE | 2019-07-13 07:47 | NUR ---
Kishan [facility]AIRE[facility] re: stress test and hypotension PAGER ID: [phone] MESSAGE: [id number] Shweta Pierce. Stress test ordered for today. BP this AM . Held all AM BP meds. Nuc. med aware. Pls. advise. Lori [phone]
[2019-07-13 11:00] VITALS: BP 96/60
--- NOTE | 2019-07-13 12:58 | NUR ---
Page Dr. Mcguire PAGER ID: [phone] MESSAGE: Room 3024C CarlosClyde: Patient's most recent BP 90/56. Thank you, Dora ext [phone].
[2019-07-13 15:00] VITALS: BP 84/49
--- NOTE | 2019-07-13 15:17 | NUR ---
Called lab to fillowo up on timed cardiac ptt for 1455. Per Lucina Randall from lab, ice cream maker just got to floor and she will make sure that patient is seen.
--- NOTE | 2019-07-13 18:10 | NUR ---
Problems reprioritized. Patient report given, questions answered & plan of care reviewed with Lucina PIERRE.
[2019-07-13 19:00] VITALS: BP 93/45
[2019-07-13] MEDS: risperiDONE 0.5mg tablet PO SCH (20:50)
[2019-07-13] MEDS: aspirin 81mg tablet.DR PO SCH (20:50)
[2019-07-13] MEDS: insulin glargine (Lantus) pen - multi-dose SQ SCH (21:00)
[2019-07-13 23:00] VITALS: BP 100/58
[2019-07-14] VITALS (15 sets, daily range): BP systolic 93–134; BP diastolic 45–80
[2019-07-14 05:16] LABS: BASOPHILS % (AUTO) 0.4 % (0-1); EOSINOPHILS # (AUTO) 0.1 X10'3 (0-0.9); EOSINOPHILS % (AUTO) 2.1 % (0-6); HEMATOCRIT 29.9 % (42.0-52.0); HEMOGLOBIN 10.6 g/dl (14.0-17.9); LYMPHOCYTES # (AUTO) 1.7 X10'3 (1.1-4.8); LYMPHOCYTES % (AUTO) 24.9 % (21-51); MEAN CORPUSCULAR HEMOGLOBIN 29.2 PG (27.0-31.0); MEAN CORPUSCULAR HGB CONC 35.6 g/dL (33.0-36.5); MEAN PLATELET VOLUME 8.7 FL (7.4-10.4); MONOCYTES # (AUTO) 0.5 X10'3 (0-0.9); MONOCYTES % (AUTO) 7.6 % (2-12); NEUTROPHILS # (AUTO) 4.4 X10'3 (1.8-7.7); PLATELET COUNT 151 X10'3 (140-440); RED BLOOD COUNT 3.65 X10'6 (4.70-6.10); RED CELL DISTRIBUTION WIDTH 14.3 % (11.5-14.5); WHITE BLOOD COUNT 6.8 X10'3 (4.5-11.0)
[2019-07-14 05:17] LABS: ANION GAP 9 (8-16); BLOOD UREA NITROGEN 58 MG/DL (7-18); BUN/CREATININE RATIO 26.7 (5.4-32.0); CALCIUM 9.1 MG/DL (8.5-10.1); CHLORIDE 104 MMOL/L (99-107); CREATININE 2.17 MG/DL (0.60-1.10); GLUCOSE 140 MG/DL (70-104); MAGNESIUM 1.7 MG/DL (1.5-2.4); POTASSIUM 3.6 MMOL/L (3.5-5.1); SODIUM 138 MMOL/L (135-145); eGFR 30 ML/MIN
[2019-07-14] MEDS: heparin 25,000 UNIT/250ml bag 250 ML IV SCH (05:31)
--- NOTE | 2019-07-14 06:10 | NUR ---
Problems reprioritized. Patient report given, questions answered & plan of care reviewed with Marilyn PIERRE.
--- NOTE | 2019-07-14 06:26 | NUR ---
Patient in room PCU 3028. I have received report from Lucina PIERRE and had the opportunity to ask questions and assume patient care.
[2019-07-14] MEDS: pregabalin 75mg capsule PO SCH (07:23)
[2019-07-14] MEDS: levoTHYROXINE 25mcg tablet PO SCH (07:23)
[2019-07-14] MEDS: sertraline 50mg tablet PO SCH (07:23)
[2019-07-14] MEDS: LORazepam 0.5 MG tablet PO SCH (07:23)
[2019-07-14] MEDS: lactobacillus rhamnosus 10,000 MMU CELLS/CAPSULE PO SCH (07:23)
[2019-07-14] MEDS: busPIRone 5mg tablet PO SCH (07:23)
[2019-07-14] MEDS: pantoprazole 40mg Tablet.DR PO SCH (07:24)
[2019-07-14] MEDS ORDERED: losartan 25mg tablet PO SCH (08:00)
[2019-07-14] MEDS ORDERED: LORazepam 2 mg/ml vial IV ONE (09:00)
[2019-07-14] MEDS ORDERED: aminophylline inj. 10 ML IV ONE (09:33)
[2019-07-14] MEDS ORDERED: aminophylline 250mg/10ml inj. IV ONE (09:50)
--- NOTE | 2019-07-14 12:05 | NUR ---
Called lab and spoke to Al to inform them that pt. is back from nuc. med. so that 1130 cardiac ptt can be drawn per protocol.
--- NOTE | 2019-07-14 12:50 | NUR ---
Kishan Mcguire MD stress test results PAGER ID: [phone] MESSAGE: [id number] Miguel Pierce Stress test results are in. No evidence of ischemia. Mild inferior wall fixed changes. There is some septal dyskinesia with paradoxical motion seen. The calculated ejection fraction was 46%. Lori [id number]
--- NOTE | 2019-07-14 14:30 | NUR ---
Called [facility] to schedule f/u appt prior to discharge. Per law secretary, they are waiting on medical records. Consulted with charge account identification clerk Kathi who stated that she will call them to follow up.
--- NOTE | 2019-07-14 14:43 | NUR ---
I SPOKE TO DR HERNANDEZ OFFICE TO MAKE FOLLOW UP APT FOR PT. THEY INSTRUCTED ME TO HAVE PT CALL OFFICE ON WEDNESDAY. IF HE DOES NOT THEY WILL ALSO ATTEMPT TO CONTACT HIM. THEY ARE UNABLE TO SCHEDULE F/U APPOINTMENTS WITHOUT HOSPITAL RECORDS IN THEIR HANDS. DR HERNANDEZ OFFICE IS CONTACTING [facility] RECORDS.
--- NOTE | 2019-07-14 15:00 | NUR ---
Per Md orders, patient is stable for discharge home. No new prescriptions to call in. Reviewed discharge packet with patient and daughter at bedside. Patient will call Dr Berrios's clinic on Wednesday for appt per clinic medical records secretary instructions and clinic will also contact patient. All questions answered to satisfaction. Discontinued telemonitoring; discontinued PIV cannula intact. All belongings sent with patient. Transferred to private vehicle via wheelchair accompanied by daughter.
--- NOTE | 2019-07-19 10:22 | NUR ---
Case management DC follow up: Spoke to pt via telephone conv. pt denies pain, cp SOB, N/V, dizziness at this time. Pt understands why he is taking medications, but would like to have a home health professional come in for assist w/medications and incidentals. Pt has follow up appt w/ tomorrow 07/20/2019, and will ask PCP for assist and referrals. pt did not have any further questions or concerns at this time.
== END 2019-07-14 15:41 | disposition home or self-care (01) | DRG 302 ==
LOC: ER 09:42 → ED HOLD 12:12 → PCU 3S 15:38
PROVIDERS: ADMIT Hospitalist; ATTEND Internal Medicine
PROC: 4A02XM4 Measurement of Cardiac Total Activity, External Approach (ICD-10-PCS; principal; 2019-07-12)
PROC: 3E033HZ Introduction of Radioactive Substance into Peripheral Vein, Percutaneous Approach (ICD-10-PCS; 2019-07-12)
DX: I25.110 Atherosclerotic heart disease of native coronary artery with unstable angina pectoris (principal); I50.33 Acute on chronic diastolic (congestive) heart failure; I13.0 Hypertensive heart and chronic kidney disease with heart failure and stage 1 through stage 4 chronic kidney disease, or unspecified chronic kidney disease; N17.9 Acute kidney failure, unspecified; E03.9 Hypothyroidism, unspecified; E11.22 Type 2 diabetes mellitus with diabetic chronic kidney disease; N18.9 Chronic kidney disease, unspecified; M10.9 Gout, unspecified; G89.4 Chronic pain syndrome; Z90.49 Acquired absence of other specified parts of digestive tract; Z95.1 Presence of aortocoronary bypass graft; I25.2 Old myocardial infarction; F41.9 Anxiety disorder, unspecified; Z82.41 Family history of sudden cardiac death; Z82.49 Family history of ischemic heart disease and other diseases of the circulatory system; Z88.8 Allergy status to other drugs, medicaments and biological substances; Z95.2 Presence of prosthetic heart valve; Z82.5 Family history of asthma and other chronic lower respiratory diseases
CPT/HCPCS: 36415; 71045; 78452; 80048; 80053; 82948; 83036; 83735; 83880; 84484; 85025; 85610; 85730; 87081; 93005; 93017; 93306; 96374; 99285; A9500; G0378; J0280; J1644; J1650; J1815; J1940; J2060; J2270; J2785; J7030

== ENCOUNTER 2019-08-03 09:35 | Day surgery (SDC) | payer MEDICARE, OTHER ==
[~2019-08-03 09:35] MED LIST changes: +AMLO10TA PO; -ICOS1CAP PO; +INSU100C10 SQ; -INSU300I; +LOSA100T57 PO; +LYR75C PO; -NOR5T PO; +PANT40TA4 PO; -PREG100C PO
[2019-08-03] MEDS ORDERED: LIDOcaine 2% 5ml jelly ONE (10:57)
== END 2019-08-03 11:46 | disposition home or self-care (01) ==
LOC: WOUND CARE 09:35
PROVIDERS: ATTEND Surgery
DX: E11.622 Type 2 diabetes mellitus with other skin ulcer (principal); L89.152 Pressure ulcer of sacral region, stage 2; L98.491 Non-pressure chronic ulcer of skin of other sites limited to breakdown of skin; E11.51 Type 2 diabetes mellitus with diabetic peripheral angiopathy without gangrene; E11.22 Type 2 diabetes mellitus with diabetic chronic kidney disease; I13.0 Hypertensive heart and chronic kidney disease with heart failure and stage 1 through stage 4 chronic kidney disease, or unspecified chronic kidney disease; I50.33 Acute on chronic diastolic (congestive) heart failure; N18.9 Chronic kidney disease, unspecified; E78.5 Hyperlipidemia, unspecified; I25.10 Atherosclerotic heart disease of native coronary artery without angina pectoris; K21.9 Gastro-esophageal reflux disease without esophagitis; G89.4 Chronic pain syndrome; M19.90 Unspecified osteoarthritis, unspecified site; M10.9 Gout, unspecified; E03.9 Hypothyroidism, unspecified; I25.2 Old myocardial infarction; F32.9 Major depressive disorder, single episode, unspecified; F41.9 Anxiety disorder, unspecified; Z90.49 Acquired absence of other specified parts of digestive tract; Z95.1 Presence of aortocoronary bypass graft
CPT/HCPCS: 97597; A4663; A6021; A6212

== ENCOUNTER 2019-08-07 11:06 | Outpatient (CLI) | payer MEDICARE, OTHER | END 2019-08-07 12:15 | disposition home or self-care (01) | LOC: WOUND CARE 11:06 → EDSTATUS 11:30 → WOUND CARE 12:15 | PROVIDERS: ATTEND Surgery | DX: E11.622 Type 2 diabetes mellitus with other skin ulcer (principal); L89.152 Pressure ulcer of sacral region, stage 2; L98.491 Non-pressure chronic ulcer of skin of other sites limited to breakdown of skin; E11.51 Type 2 diabetes mellitus with diabetic peripheral angiopathy without gangrene; E11.22 Type 2 diabetes mellitus with diabetic chronic kidney disease; I13.0 Hypertensive heart and chronic kidney disease with heart failure and stage 1 through stage 4 chronic kidney disease, or unspecified chronic kidney disease; I50.33 Acute on chronic diastolic (congestive) heart failure; N18.9 Chronic kidney disease, unspecified; E78.5 Hyperlipidemia, unspecified; I25.10 Atherosclerotic heart disease of native coronary artery without angina pectoris; K21.9 Gastro-esophageal reflux disease without esophagitis; G89.4 Chronic pain syndrome; M19.90 Unspecified osteoarthritis, unspecified site; M10.9 Gout, unspecified; E03.9 Hypothyroidism, unspecified; I25.2 Old myocardial infarction; F32.9 Major depressive disorder, single episode, unspecified; F41.9 Anxiety disorder, unspecified; Z90.49 Acquired absence of other specified parts of digestive tract; Z95.1 Presence of aortocoronary bypass graft | CPT/HCPCS: A4663; G0463 ==